=== PATIENT | male | born 1970 | race Caucasian/White ===

== ENCOUNTER → 2019-03-22 | Day surgery (SDC) | payer OTHER ==
[~2019-03-22] MED LIST: ACETAMINOPHEN 1000 MG/100 ML IV ONE; ADVIL200 MG PO; BACITRACIN 50,000 UNIT VIAL ONE; BUPIVACAINE HCL 0.5% INJ 30 ML VIAL INJ ONE; CEFAZOLIN SOD 2 GM/D5W 50ML 50 ML IV ONE; DEXAMETHASONE SOD PHOS INJ 4 MG/ML VIAL ONE; FENTANYL CITRATE/PF 100MCG/2 ML INJ ONE; HYDROMORPHONE 2MG/ML 2 MG/ML ML ONE; KETOROLAC TROMETHAMINE 30 MG/ML VIAL ONE; LIDOCAINE HCL 2% LOCAL INJ 5 ML SDV VIAL INJ ONE; MIDAZOLAM HCL 2 MG/2 ML VIAL ONE; MORPHINE SULFATE INJ 4 MG/ML INJ 1ML ONE; ONDANSETRON HCL INJ 2MG/ML 2ML 2 MG/ML VIAL ONE; PROPOFOL IV EMULSION 10 MG/ML 20 ML VIAL ONE; SEVOFLURANE INHAL SOLN 250 ML PEN BTL ONE; TYLENOL WITH C1 EACH PO
[2019-03-22 12:15] VITALS: BP 144/95
--- NOTE | 2019-03-23 22:18 | Operative Report ---
DATE OF PROCEDURE: SURGEON: Geo Amin MD PREOPERATIVE DIAGNOSIS: Right small toe comminuted metatarsal fracture. POSTOPERATIVE DIAGNOSIS: Right small toe comminuted metatarsal fracture. OPERATION/PROCEDURE PERFORMED: 1. The patient underwent open reduction and internal fixation of the comminuted right small toe metatarsal fracture. 2. Allograft bone grafting of the comminuted small toe metatarsal fracture. BIRTH CERTIFICATE CLERK: TRACY Freeman. ANESTHESIA: General endotracheal intubation anesthesia. IV FLUIDS: Per the anesthesia record. BRIEF DESCRIPTION OF THE PATIENT'S OPERATIVE PROCEDURE: Mr. Tobar was taken to the operating room and placed in supine position on the operating room table. Following induction of general anesthesia as well as endotracheal intubation, the patient's right lower extremity was examined under anesthesia. He was found to have a bruise and ecchymosis involving his right foot. The right foot was mildly swollen. Soft tissues were easily dimpleable at the time of surgery. Fluoroscopic evaluation of the right foot demonstrated a comminuted small toe metatarsal fracture. The head was plantarly flexed into the sole of the foot. The patient's lower extremities were prepped and draped in standard surgical fashion. The case was begun by attempting a closed reduction of the patient's injury. This failed to realign the fracture. An incision was therefore created overlying the 5th metatarsal. This incision was carried through skin only. Blunt dissection was used to deepen the incision. The extensor tendon was identified and retracted medially. Dissection to the level of the 5th metatarsal. The dissection was carried distally and the patient was found to have a severely comminuted segment of the distal aspect of the 5th metatarsal. The metatarsal head was essentially floating with a comminuted segment of bone proximal to it. The wound was copiously irrigated. The bone was brought out to length and the head was placed in line with the shaft. A plate was chosen to bridge the comminuted segment. Screws were placed in both head as well as the proximal shaft of the 5th metatarsal providing distraction through the comminuted segment. The comminuted segment was then irrigated thoroughly and bone grafted. Large fracture fragments of the lateral wall of the 5th metatarsal were then reduced and held in place with screws. This resulted in a near anatomic reapproximation of the 5th metatarsal. This was confirmed fluoroscopically in both the AP and lateral planes. The wound was again irrigated. The fracture was further bone grafted. The soft tissues were then closed in a multilayer fashion. Sterile dressings were applied. The patient was awakened and taken to postanesthesia care unit in stable condition with a splint on his right lower extremity. Ilda Luna acted as a diploma dental assistant for this case, was necessary for both prepping and draping the patient as well as the retraction of soft tissues and the application of postsurgical dressings and splints that allowed this case to be successful. MD MALCOLM Kaur/KERI /[id number]
== END | disposition home or self-care (01) ==
LOC: OR 07:31
PROVIDERS: ATTEND Specialist
DX: S92.351A Displaced fracture of fifth metatarsal bone, right foot, initial encounter for closed fracture (principal); W20.8XXA Other cause of strike by thrown, projected or falling object, initial encounter; Y92.89 Other specified places as the place of occurrence of the external cause; Y99.0 Civilian activity done for income or pay; Z01.810 Encounter for preprocedural cardiovascular examination
CPT/HCPCS: 93005; C1713; J0690; J1100; J1885; J2001; J2250; J2270; J2405